=== PATIENT | female | born 2000 | race Two or more races ===

== ENCOUNTER 2023-08-18 16:05 | Emergency (ER) | payer SELFPAY ==
[~2023-08-18] VITALS: Ht 162.6 cm; Wt 72.3 kg
[2023-08-18 16:18] VITALS: BP 124/87; PULSE 91; RESP 19; O2SAT 97
[2023-08-18 19:48] LABS: Urine Bacteria NONE SEEN /hpf (None Seen); Urine Blood Negative /uL (Negative); Urine Clarity Clear (Clear); Urine Color Colorless (Yellow); Urine Mucus FEW (None Seen); Urine Protein, UAD Negative (Negative); Urine Specific Gravity 1.017 (1.001-1.035); Urine Urobilinogen Normal (Negative); Urine WBC 1 /hpf (0 - 5)
== END 2023-08-18 21:14 | disposition left against medical advice (07) ==
LOC: EDBD 16:05 → ER 16:05
DX: R06.02 Shortness of breath (principal); Z53.21 Procedure and treatment not carried out due to patient leaving prior to being seen by health care provider
CPT/HCPCS: 81001; 81025